=== PATIENT | female | born 2000 | race African-American/Black ===

== ENCOUNTER 2023-10-02 12:13 | Inpatient (IN) | payer OTHER ==
[~2023-10-02] VITALS: Ht 160 cm; Wt 53.3 kg
[~2023-10-02 12:13] MED LIST: AMOX875T PO; BENZ200C70 PO
[2023-10-02] MEDS ORDERED: HOME MED LIST COMPLETE! XX SCH (12:45)
[2023-10-02 12:59] LABS: HEMATOCRIT 38.8 % (36.0-47.0); HEMOGLOBIN 12.1 g/dl (12.0-15.5); MEAN CORPUSCULAR HEMOGLOBIN 27.6 pg (27.0-33.0); MEAN CORPUSCULAR HGB CONC 31.2 g/dl (32.0-36.5); MEAN CORPUSCULAR VOLUME 88.6 fl (80.0-96.0); PLATELET COUNT, AUTOMATED 285 10^3/uL (150-450); RED BLOOD COUNT 4.38 10^6/uL (4.00-5.40); WHITE BLOOD COUNT 9.9 10^3/uL (4.0-10.0)
[2023-10-02 13:16] LABS: AMPHETAMINES LEVEL URINE NEGATIVE (NEGATIVE); BARBITURATES URINE NEGATIVE (NEGATIVE); BENZODIAZEPINES URINE NEGATIVE (NEGATIVE); CANNABINOIDS URINE NEGATIVE (NEGATIVE); COCAINE METABOLITE URINE NEGATIVE (NEGATIVE); METHADONE URINE NEGATIVE (NEGATIVE); OPIATES URINE NEGATIVE (NEGATIVE); PHENCYCLIDINE URINE NEGATIVE (NEGATIVE)
[2023-10-02 13:29] LABS: ETHYL ALCOHOL (ETHANOL) < 0.003 % (0.000-0.010)
[2023-10-02 13:30] LABS: SALICYLATE LEVEL < 3.0 MG/DL (<30)
[2023-10-02 13:31] LABS: ALBUMIN 4.1 G/DL (3.2-5.2); ALKALINE PHOSPHATASE 81 U/L (46-116); ALT/SGPT 17 U/L (7.0-40); AST/SGOT 22 U/L (<34); BILIRUBIN,DIRECT 0.4 MG/DL (<0.4); BILIRUBIN,TOTAL 1.1 MG/DL (0.3-1.2); BLOOD UREA NITROGEN 11 MG/DL (9-23); CALCIUM LEVEL 9.1 MG/DL (8.5-10.1); CARBON DIOXIDE LEVEL 24 MMOL/L (20-31); CHLORIDE LEVEL 104 MMOL/L (98-107); CREATININE FOR GFR 0.92 MG/DL (0.55-1.30); GLOMERULAR FILTRATION RATE > 60.0 (>60); GLUCOSE, FASTING 95 MG/DL (60-100); POTASSIUM SERUM 3.9 MMOL/L (3.5-5.1); SODIUM LEVEL 137 MMOL/L (136-145); TOTAL PROTEIN 7.1 G/DL (5.7-8.2)
[2023-10-02 13:33] LABS: THYROID STIMULATING HORMONE 0.778 uIU/ML (0.55-4.78)
[2023-10-02] MEDS ORDERED: MOM 30ML SUSPENSION UDC PO PRN (16:25)
[2023-10-02] MEDS ORDERED: NICOTINE 21MG/24HR 1 EA TRANSDERMAL TD PRN (16:25)
[2023-10-02] MEDS ORDERED: MAALOX 30 ML SUSP *UDC PO PRN (16:25)
[2023-10-02 23:18] VITALS: BP 109/78; TEMP 97.6; O2SAT 99
[2023-10-03] MEDS: traZODone 50 MG TAB PO PRN (00:34)
[2023-10-03] MEDS: IBUPROFEN 400MG TAB PO PRN (00:35)
[2023-10-03 06:18] VITALS: BP 106/55; TEMP 98.1; O2SAT 98
[2023-10-03] MEDS: SERTRALINE HCL 50 MG TAB PO SCH (11:26)
[2023-10-03 17:42] VITALS: BP 106/57; TEMP 97.9; O2SAT 100
[2023-10-03] MEDS: diphenhydrAMINE 25MG CAP PO PRN (22:20)
[2023-10-04 06:11] VITALS: BP 90/54; TEMP 98.8; O2SAT 97
[2023-10-04] MEDS: CEPACOL LOZENGE PO PRN (09:45)
[2023-10-04] MEDS: ACETAMINOPHEN TAB 650MG DOSE (2X325MG) PO PRN (09:46)
[2023-10-04] MEDS ORDERED: SERT50TA29 PO (13:29)
[2023-10-04] MEDS ORDERED: TRAZ-252 PO (13:29)
[2023-10-04] MEDS ORDERED: BENZ1LOZ9 PO (13:29)
[2023-10-04 17:17] VITALS: BP 127/60; TEMP 98; O2SAT 100
== END 2023-10-05 10:52 | disposition home or self-care (01) | DRG 881 ==
LOC: M ED 12:13 → M ED INP 16:23 → M PSY 23:15
PROVIDERS: ADMIT Student in an Organized Health Care Education/Training Program; ATTEND Student in an Organized Health Care Education/Training Program
DX: F32.A Depression, unspecified (principal); R45.851 Suicidal ideations; F41.9 Anxiety disorder, unspecified

== ENCOUNTER → 2024-09-25 | Outpatient (CLI) | payer OTHER ==
[~2024-09-25] MED LIST changes: +BENZ1LOZ9 PO; +SERT50TA29 PO; +TRAZ-252 PO
== END ==
LOC: M WHC 08:38
PROVIDERS: ATTEND General Practice
DX: N63.10 Unspecified lump in the right breast, unspecified quadrant (principal)

== ENCOUNTER → 2024-10-09 | Outpatient (CLI) | payer OTHER ==
[~2024-10-09] MED LIST changes: +LIDOCAINE 1% MDV 20ML VIAL ONE
[2024-10-10 09:06] VITALS: TEMP 98.6
[2024-10-10 09:22] VITALS: BP 128/80; O2SAT 100
== END ==
LOC: M WHCPRO 13:57
PROVIDERS: ATTEND General Practice
DX: N60.01 Solitary cyst of right breast (principal); N63.11 Unspecified lump in the right breast, upper outer quadrant

== ENCOUNTER 2024-12-19 07:28 | Day surgery (SDC) | payer OTHER ==
[~2024-12-19] VITALS: Ht 160 cm; Wt 52.8 kg
[~2024-12-19 07:28] MED LIST changes: -LIDOCAINE 1% MDV 20ML VIAL ONE
[2024-12-19] MEDS ORDERED: LIDOCAINE 1% MDV 20 ML VIAL As Ordered ONE (07:43)
[2024-12-19] MEDS ORDERED: dexAMETHasone 4 MG/ML 1 ML VIAL As Ordered ONE (08:40)
[2024-12-19] MEDS ORDERED: KETOROLAC 30 MG/ML 1 ML VIAL As Ordered ONE (08:40)
[2024-12-19] MEDS ORDERED: ONDANSETRON 4MG 2ML VIAL As Ordered ONE (08:40)
[2024-12-19] MEDS ORDERED: LIDOCAINE 2% 100 MG/5 ML SDV (FOR ANES.) As Ordered ONE (08:40)
[2024-12-19] MEDS ORDERED: MIDAZOLAM INJ 2 MG/2 ML VIAL As Ordered ONE (08:41)
[2024-12-19] MEDS: LR 1,000 ML IV SCH (08:50)
[2024-12-19] MEDS: ceFAZolin SOD 2 GM IV ONCE IV ONE (09:35)
[2024-12-19] MEDS ORDERED: ONDANSETRON 4MG 2ML VIAL IV PRN (11:15)
[2024-12-19 12:30] VITALS: BP 115/68; TEMP 97.1; O2SAT 100
== END 2024-12-19 12:32 | disposition home or self-care (01) ==
LOC: M SDC 07:28 → EDSTATUS 09:00 → M SDC 12:32
PROVIDERS: ATTEND Surgery
DX: D05.11 Intraductal carcinoma in situ of right breast (principal); F32.A Depression, unspecified
CPT/HCPCS: 19125; 76942; 81025; 88307; J0665; J0690; J1100; J1885; J2250; J2405; J3010

== ENCOUNTER → 2025-01-06 | Outpatient (CLI) | payer OTHER | LOC: M PLALAB 16:21 | PROVIDERS: ATTEND Surgery | DX: C50.411 Malignant neoplasm of upper-outer quadrant of right female breast (principal); Z53.9 Procedure and treatment not carried out, unspecified reason ==

== ENCOUNTER 2025-01-26 10:03 | Emergency (ER) | payer OTHER ==
[~2025-01-26] VITALS: Ht 160 cm; Wt 51.2 kg
[2025-01-26 10:18] VITALS: BP 109/61; TEMP 96.9; O2SAT 99
[2025-01-27] MEDS ORDERED: CEPH500C PO (02:15)
== END 2025-01-26 11:44 | disposition left against medical advice (07) ==
LOC: M ED 10:03
DX: Z53.21 Procedure and treatment not carried out due to patient leaving prior to being seen by health care provider (principal)

== ENCOUNTER 2025-01-26 22:47 | Emergency (ER) | payer OTHER ==
[~2025-01-26] VITALS: Ht 160 cm; Wt 53.6 kg
[2025-01-26 22:49] VITALS: TEMP 98
[2025-01-27 00:43] LABS: BASO # 0.0 10^3/uL (0.0-0.2); BASO % 0.5 % (0.0-1.0); EOS # 0.2 10^3/uL (0.0-0.5); EOS % 2.4 % (0.0-3.0); LYMPH # 3.2 10^3/uL (1.5-5.0); LYMPH % 37.9 % (24.0-44.0); MONO # 1.0 10^3/uL (0.0-0.8); MONO % 11.6 % (2.0-8.0); NEUTROPHILS # 4.0 10^3/uL (1.5-8.5); NEUTROPHILS % 47.4 % (36.0-66.0); PLATELET COUNT, AUTOMATED 296 10^3/uL (150-450)
[2025-01-27 02:14] VITALS: BP 115/60; O2SAT 99
[2025-01-27] MEDS ORDERED: CEPH500C PO (02:15)
== END 2025-01-27 02:30 | disposition home or self-care (01) ==
LOC: M ED 22:47
DX: L03.313 Cellulitis of chest wall (principal); F32.A Depression, unspecified; Z79.2 Long term (current) use of antibiotics

== ENCOUNTER → 2025-02-05 | Outpatient (CLI) | payer OTHER ==
[~2025-02-05] MED LIST changes: +CEPH500C PO; +PROHANCE 279.3MG/ML 5ML VIAL ONE
== END ==
LOC: M PLAIMG 14:39
PROVIDERS: ATTEND Surgery
DX: C50.411 Malignant neoplasm of upper-outer quadrant of right female breast (principal)
CPT/HCPCS: A9576; C8908

== ENCOUNTER → 2025-02-12 | Outpatient (CLI) | payer OTHER ==
[~2025-02-12] MED LIST changes: -PROHANCE 279.3MG/ML 5ML VIAL ONE
== END ==
LOC: M WHC 10:41
PROVIDERS: ATTEND Surgery
DX: C50.411 Malignant neoplasm of upper-outer quadrant of right female breast (principal); N60.11 Diffuse cystic mastopathy of right breast; N63.20 Unspecified lump in the left breast, unspecified quadrant

== ENCOUNTER 2025-02-17 22:55 | Emergency (ER) | payer OTHER ==
[~2025-02-17] VITALS: Ht 160 cm; Wt 52.3 kg
[2025-02-18] MEDS: NS (Normal Saline) 0.9% 1,000 ML IV ONE (01:36)
[2025-02-18] MEDS: dexAMETHasone 4 MG/ML 1 ML VIAL IV ONE (01:36)
[2025-02-18] MEDS: MAG SULF 1GM/100ML (MAG RUN) 1 GM in IV 1 EA IV ONE (01:36)
[2025-02-18] MEDS: KETOROLAC 30 MG/ML 1 ML VIAL IV ONE (01:37)
[2025-02-18] MEDS: ACETAMINOPHEN *IV* 1,000 MG in IV 1 EA IV ONE (01:37)
[2025-02-18 01:57] LABS: BASO # 0.1 10^3/uL (0.0-0.2); BASO % 0.8 % (0.0-1.0); EOS # 0.1 10^3/uL (0.0-0.5); EOS % 1.9 % (0.0-3.0); LYMPH # 2.6 10^3/uL (1.5-5.0); LYMPH % 35.9 % (24.0-44.0); MONO # 0.8 10^3/uL (0.0-0.8); MONO % 11.3 % (2.0-8.0); NEUTROPHILS # 3.6 10^3/uL (1.5-8.5); NEUTROPHILS % 50.0 % (36.0-66.0); PLATELET COUNT, AUTOMATED 289 10^3/uL (150-450)
[2025-02-18 02:19] LABS: CALCIUM LEVEL 9.2 MG/DL (8.5-10.1); CARBON DIOXIDE LEVEL 24 MMOL/L (20-31); CHLORIDE LEVEL 109 MMOL/L (98-107); CREATININE FOR GFR 0.92 MG/DL (0.55-1.30); GLOMERULAR FILTRATION RATE 88.1 (>60); MAGNESIUM LEVEL 1.9 MG/DL (1.8-2.4); POTASSIUM SERUM 4.0 MMOL/L (3.5-5.1); SODIUM LEVEL 143 MMOL/L (136-145)
[2025-02-18 03:01] LABS: HCG, SERUM QUALITATIVE NEGATIVE (NEGATIVE)
[2025-02-18 04:30] VITALS: BP 109/52; TEMP 97.8; O2SAT 100
== END 2025-02-18 04:45 | disposition home or self-care (01) ==
LOC: M ED 22:55
DX: S06.0X0A Concussion without loss of consciousness, initial encounter (principal); M25.511 Pain in right shoulder; S01.81XA Laceration without foreign body of other part of head, initial encounter; V49.50XA Passenger injured in collision with unspecified motor vehicles in traffic accident, initial encounter; F32.A Depression, unspecified; Z79.2 Long term (current) use of antibiotics; Y92.410 Unspecified street and highway as the place of occurrence of the external cause; Y93.89 Activity, other specified; Y99.9 Unspecified external cause status
CPT/HCPCS: 70450; 72125; 73020; 80048; 83735; 84703; 85025; 96365; 96366; 96367; 96375; 99284; J0131; J1100; J1885; J2765; J3475

== ENCOUNTER → 2025-02-26 | Outpatient (CLI) | payer OTHER ==
[2025-02-26 10:15] VITALS: TEMP 98.4
[2025-02-26 11:40] VITALS: BP 100/68; O2SAT 100
== END ==
LOC: M WHCPRO 09:59
PROVIDERS: ATTEND Surgery
DX: C50.411 Malignant neoplasm of upper-outer quadrant of right female breast (principal)

== ENCOUNTER → 2025-03-06 | Outpatient (CLI) | payer OTHER ==
[~2025-03-06] MED LIST changes: +TAMO20TA8 PO
== END ==
LOC: M ONCR 15:00
PROVIDERS: ATTEND General Practice
DX: D05.11 Intraductal carcinoma in situ of right breast (principal); Z17.0 Estrogen receptor positive status [ER+]; Z17.21 Progesterone receptor positive status; Z79.810 Long term (current) use of selective estrogen receptor modulators (SERMs); Z98.890 Other specified postprocedural states

== ENCOUNTER → 2025-03-18 | Outpatient (RCR) | payer OTHER | LOC: M ONCR 13:44 | PROVIDERS: ATTEND General Practice | DX: Z51.0 Encounter for antineoplastic radiation therapy (principal); D05.11 Intraductal carcinoma in situ of right breast ==

== ENCOUNTER → 2025-04-18 | Outpatient (RCR) | payer OTHER ==
[~2025-04-18] MED LIST changes: +FERR325T3 PO
== END ==
LOC: M ONCR 03-19 09:31
PROVIDERS: ATTEND General Practice
DX: Z51.0 Encounter for antineoplastic radiation therapy (principal); D05.11 Intraductal carcinoma in situ of right breast

== ENCOUNTER → 2025-04-30 | Outpatient (CLI) | payer OTHER | LOC: M RAD 14:43 | PROVIDERS: ATTEND Student in an Organized Health Care Education/Training Program | DX: N28.89 Other specified disorders of kidney and ureter (principal); C50.919 Malignant neoplasm of unspecified site of unspecified female breast ==

== ENCOUNTER 2025-05-01 14:08 | Outpatient (RCR) | payer OTHER ==
[2025-05-08] MEDS ORDERED: BACI500O8 TOP (11:33)
[2025-05-08] MEDS ORDERED: HYDR-3713 PO (11:33)
[2025-05-08] MEDS ORDERED: CEPH500C PO (11:33)
[2025-05-08] MEDS ORDERED: AQUAOIN12 TP (11:36)
== END 2025-05-18 ==
LOC: M ONCR 14:08
PROVIDERS: ATTEND General Practice
DX: Z51.0 Encounter for antineoplastic radiation therapy (principal); D05.11 Intraductal carcinoma in situ of right breast

== ENCOUNTER → 2025-05-06 | Outpatient (REF) | payer OTHER ==
[~2025-05-06] MED LIST changes: +AQUAOIN12 TP; +BACI500O8 TOP; +HYDR-3713 PO
[2025-05-06 17:19] LABS: BASO # 0.0 10^3/uL (0.0-0.2); BASO % 0.5 % (0.0-1.0); EOS # 0.1 10^3/uL (0.0-0.5); EOS % 1.5 % (0.0-3.0); LYMPH # 1.7 10^3/uL (1.5-5.0); LYMPH % 21.7 % (24.0-44.0); MONO # 0.8 10^3/uL (0.0-0.8); MONO % 9.6 % (2.0-8.0); NEUTROPHILS # 5.2 10^3/uL (1.5-8.5); NEUTROPHILS % 66.4 % (36.0-66.0); PLATELET COUNT, AUTOMATED 314 10^3/uL (150-450)
[2025-05-06 17:20] LABS: ALT/SGPT < 9 U/L (7.0-40); AST/SGOT 16 U/L (<34); CALCIUM LEVEL 8.8 MG/DL (8.5-10.1); CARBON DIOXIDE LEVEL 26 MMOL/L (20-31); CHLORIDE LEVEL 108 MMOL/L (98-107); CREATININE FOR GFR 0.95 MG/DL (0.55-1.30); GLOMERULAR FILTRATION RATE 84.7 (>60); IRON (FE) 46 UG/DL (50-170); MAGNESIUM LEVEL 1.8 MG/DL (1.8-2.4); PERCENT SATURATION 13.5 % (13.2-45.0); POTASSIUM SERUM 4.6 MMOL/L (3.5-5.1); SODIUM LEVEL 143 MMOL/L (136-145)
== END ==
LOC: M LAB REF 16:55
PROVIDERS: ATTEND Student in an Organized Health Care Education/Training Program
DX: C50.919 Malignant neoplasm of unspecified site of unspecified female breast (principal)

== ENCOUNTER 2025-05-08 09:16 | Emergency (ER) | payer OTHER ==
[~2025-05-08] VITALS: Ht 160 cm; Wt 52.6 kg
[~2025-05-08 09:16] MED LIST changes: -AQUAOIN12 TP; -BACI500O8 TOP; -HYDR-3713 PO
[2025-05-08 09:17] VITALS: BP 102/70; TEMP 97.4; O2SAT 97
[2025-05-08] MEDS ORDERED: HYDR-3713 PO (11:33)
[2025-05-08] MEDS ORDERED: BACI500O8 TOP (11:33)
[2025-05-08] MEDS ORDERED: CEPH500C PO (11:33)
[2025-05-08] MEDS: CEPHALEXIN 500 MG CAP PO ONE (11:34)
[2025-05-08] MEDS: KETOROLAC 60 MG/2 ML VIAL IM ONE (11:35)
[2025-05-08] MEDS ORDERED: AQUAOIN12 TP (11:36)
== END 2025-05-08 11:49 | disposition home or self-care (01) ==
LOC: M ED 09:16
DX: L58.9 Radiodermatitis, unspecified (principal); C50.911 Malignant neoplasm of unspecified site of right female breast; Z79.1 Long term (current) use of non-steroidal anti-inflammatories (NSAID); Z79.2 Long term (current) use of antibiotics; Z79.899 Other long term (current) drug therapy
CPT/HCPCS: 96372; 99283; J1885